=== PATIENT | female | born 1995 | race Caucasian/White ===

== ENCOUNTER 2019-06-30 06:04 | Emergency (ER) | payer OTHER ==
[2019-06-30 06:27] VITALS: BP 108/65; PULSE 113; TEMP 99.4; BMI 24.5
--- NOTE | 2019-06-30 07:02 | PDOC ---
History of Present Illness - General History Source: Patient Exam Limitations: No Limitations <Mer High - Last Filed: 06/30/19 10:27> <Shayne Roa - Last Filed: 06/30/19 12:11> - General Chief Complaint: Cold Symptoms Stated Complaint: COLD SYMPTOMS/, 5 WKS Time Seen by Provider: 06/30/19 06:51 Past History - Travel Traveled outside of the country in the last 30 days: No Close contact w/someone who was outside of country & ill: No - Past Medical History COPD: No GI Disorders: Yes (Gastroparesis) Other medical history: Ovarian cyst - Reproductive History Is Patient Now?: Yes (#): 1 Para: 0 Cervical CA: No Dysfunctional Uterine Bleeding: No Ectopic : No Endometrial CA: No Polycystic Ovaries: Yes Therapeutic (s) & number: No Tubal Ligation: No - Immunization History Td Vaccination: Yes TDAP Vaccination: Yes - Psycho Social/Smoking Cessation Hx Smoking History: Never smoked Have you smoked in the past 12 months: No Information on smoking cessation initiated: No Hx Alcohol Use: No Drug/Substance Use Hx: No <Mer High - Last Filed: 06/30/19 10:27> <Shayne Roa - Last Filed: 06/30/19 12:11> - Past Medical History Allergies/Adverse Reactions: Allergies Allergy/AdvReac Type Severity Reaction Status Date / Time No Known Allergies Allergy Verified 06/30/19 07:05 Review of Systems - Review of Systems Able to Perform ROS?: Yes Comments:: 06/30/19 06:56 CONSTITUTIONAL: Absent: fever, chills, diaphoresis, generalized weakness, malaise, loss of appetite HEENT: Absent: rhinorrhea, nasal congestion, throat pain, throat swelling, difficulty swallowing, mouth swelling, ear pain, eye pain, visual Changes CARDIOVASCULAR: Absent: chest pain, loss of consciousness, palpitations, irregular heart rate, peripheral edema RESPIRATORY: Present: productive cough Absent: shortness of breath, dyspnea with exertion, orthopnea, wheezing, stridor, hemoptysis GASTROINTESTINAL: Absent: abdominal pain, abdominal distension, nausea, vomiting, diarrhea, constipation, melena, hematochezia GENITOURINARY: Present: vaginal bleeding Absent: dysuria, frequency, urgency, hesitancy, hematuria, flank pain, genital pain MUSCULOSKELETAL: Absent: myalgia, arthralgia, joint swelling SKIN: Absent: rash, itching, pallor NEUROLOGIC: Absent: headache, focal weakness or paresthesias, dizziness, unsteady gait, seizure, mental status changes, bladder or bowel incontinence PSYCHIATRIC: Absent: anxiety, depression, suicidal or homicidal ideation, hallucinations. Is the patient limited [place]ian proficient: No <Mer High - Last Filed: 06/30/19 10:27> *Physical Exam - Vital Signs Last Vital Signs Temp Pulse Resp BP Pulse Ox 99.4 F 113 H 18 108/65 98 06/30/19 06:20 06/30/19 06:20 06/30/19 06:20 06/30/19 06:20 06/30/19 06:20 - Physical Exam 06/30/19 06:56 GENERAL: Well developed, well nourished. Awake and alert. No acute distress. HEENT: Normocephalic, atraumatic. PERRLA, EOMI. No conjunctival pallor. Sclera are non- icteric. Moist mucous membranes. Oropharynx is clear. NECK: Supple. Full ROM. No lymphadenopathy. ABDOMINAL: Soft. Non-tender. Non-distended. No rebound or guarding. No organomegaly. Normoactive bowel sounds. PELVIC: External genitalia normal without lesions. Vaginal vault is with dark brown blood. Cervix is long and closed. No cervical motion tenderness. Uterus is nontender and normal in size. Adnexa are nontender and without masses. MUSCULOSKELETAL Normal range of motion at all joints. No bony deformities or tenderness. No CVA tenderness. EXTREMITIES: No cyanosis. No edema. SKIN: Warm and dry. Normal capillary refill. No rashes. No jaundice. NEUROLOGICAL: Alert, awake, appropriate. Cranial nerves 2-12 intact. No deficits to light touch and temperature in face, upper extremities and lower extremities. No motor deficits in the in face, upper extremities and lower extremities. Normoreflexic in the upper and lower extremities. Normal speech. Toes are down- going bilaterally. Gait is normal without ataxia. PSYCHIATRIC: Cooperative. Good eye contact. Appropriate mood and affect. <Mer High - Last Filed: 06/30/19 10:27> - Vital Signs Last Vital Signs Temp Pulse Resp BP Pulse Ox 99.4 F 113 H 18 108/65 98 06/30/19 06:20 06/30/19 06:20 06/30/19 06:20 06/30/19 06:20 06/30/19 06:20 <Shayne Roa - Last Filed: 06/30/19 12:11> ED Treatment Course - LABORATORY CBC & Chemistry Diagram: 06/30/19 07:30 06/30/19 07:30 <Mer High - Last Filed: 06/30/19 10:27> - LABORATORY CBC & Chemistry Diagram: 06/30/19 07:30 06/30/19 07:30 - ADDITIONAL ORDERS Additional order review: Laboratory Results 06/30/19 06/30/19 06/30/19 08:30 07:30 07:30 Sodium 134 L Potassium 3.9 Chloride 107 Carbon Dioxide 25 Anion Gap 3 L BUN 7.4 Creatinine 0.7 Est GFR (CKD-EPI)AfAm 138.59 Est GFR (CKD-EPI)NonAf 119.58 Random Glucose 83 Calcium 8.6 Total Bilirubin 0.6 AST 14 L ALT 22 Alkaline Phosphatase 76 Total Protein 8.1 Albumin 3.8 Beta HCG, Quant 4477.0 Urine Color Yellow Urine Appearance Clear Urine pH 6.0 Ur Specific [place] 1.026 Urine Protein Negative Urine Glucose (UA) Negative Urine Ketones 1+ H Urine Blood Negative Urine Nitrite Negative Urine Bilirubin Negative Urine Urobilinogen 0.2 Ur Leukocyte Esterase Negative Blood Type A POSITIVE Antibody Screen Negative 06/30/19 07:30 RBC 4.01 MCV 88.0 MCHC 34.2 RDW 12.7 MPV 8.1 Neutrophils % 79.4 Lymphocytes % 11.8 Monocytes % 7.9 Eosinophils % 0.7 Basophils % 0.2 <Shayne Roa - Last Filed: 06/30/19 12:11> Medical Decision Making - Medical Decision Making 06/30/19 10:21 The patient is a 24 y/o F G1, P0, with PMH of gastroparesis, presents to the ER with cold symptoms and vaginal bleeding. The patient states her last menstrual cycle was May 26. She notes that yesterday she started to experience some vaginal bleeding. She notes that the blood was dark brown and happened after every time she wiped. Denies urinary symptoms. She also notes that she has had a cough for over 1 week. She was evaluated in urgent care for a productive cough and told she had a cold and to use supportive therapy. Denies fevers, chills, n/v/d, shortness of breath. A/P: Vaginal bleeding in early , cold symptoms. On exam the cervix is closed and long. Dark red blood noted in the vaginal vault not pooling. No adnexal tenderness. Lungs are clear to auscultation bilaterally, throat and ears are unremarkable. Likely a viral illness. Continue with supportive therapy. Transvaginal ultrasound shows a intrauterine approximately 5 weeks with a yolk sac however no heartbeat or pole at this time. Beta-hCG is 4400. Urine is negative for infection. Rest of blood work is unremarkable. Patient's blood type is a positive. We will have patient follow-up in 2 days for repeat ultrasound and beta-hCG. Discharge home I discussed the physical exam findings, ancillary test results and final diagnoses with the patient. I answered all of the patient's questions. The patient was satisfied with the care received and felt comfortable with the discharge plan and treatment plan. The Patient agrees to follow up with the primary care physician/specialist within 24-72 hours. Return precautions were given. <Mer High - Last Filed: 06/30/19 10:27> - Medical Decision Making 06/30/19 12:11 I reviewed the case of the mid-level practitioner and was available for consultation while in the emergency department <Shayne Roa - Last Filed: 06/30/19 12:11> Discharge - Discharge Information Problems reviewed: Yes - Admission No <Mer High - Last Filed: 06/30/19 10:27> <Shayne Roa - Last Filed: 06/30/19 12:11> - Discharge Information Clinical Impression/Diagnosis: Vaginal bleeding Condition: Stable Disposition: HOME - Follow up/Referral Referrals: Grace Gipson MD [Primary Care Provider] - - Patient Discharge Instructions Patient Printed Discharge Instructions: DI for Vaginal Bleeding During Additional Instructions: You were evaluated for your vaginal bleeding today. Your beta hCG was 4400. Your ultrasound showed multiple cysts as well as a within the uterus at about 5 weeks without a heart rate at this time. Please follow-up in 2 days to have your blood redrawn and a new ultrasound. Return to the ER if you have increased bleeding of over 1 pad per hour, lightheadedness, dizziness, vomiting or if you have any changes in your symptoms. - Post Discharge Activity Work/Back to School Note: Back to Work
[2019-06-30 08:42] LABS: BASO % 0.2 % (0-2.0); EOS % 0.7 % (0-4.5); HEMATOCRIT 35.3 % (32.4-45.2); HEMOGLOBIN 12.1 GM/dL (10.7-15.3); LYMPH % 11.8 % (8-40); MCH 30.1 pg (25.7-33.7); MCHC 34.2 g/dl (32.0-36.0); MEAN PLT VOLUME 8.1 fl (7.5-11.1); MONO % 7.9 % (3.8-10.2); NEUT % 79.4 % (42.8-82.8); PLATELET COUNT 371 K/MM3 (134-434); RBC 4.01 M/mm3 (3.60-5.2); RDW 12.7 % (11.6-15.6); WHITE BLOOD COUNT 11.3 K/mm3 (4.0-10.0)
[2019-06-30 09:21] LABS: ALBUMIN 3.8 g/dl (3.4-5.0); BILIRUBIN,TOTAL 0.6 mg/dL (0.2-1); BLOOD UREA NITROGEN 7.4 mg/dL (7-18); CALCIUM 8.6 mg/dL (8.5-10.1); CREATININE 0.7 mg/dL (0.55-1.3); POTASSIUM 3.9 mmol/L (3.5-5.1); TOT PROT 8.1 g/dl (6.4-8.2)
[2019-06-30] MEDS ORDERED: ONDANSETRON *ODT* 4 MG TABLET ONE (09:34)
[2019-06-30 09:48] LABS: URINE APPEARANCE CLEAR; URINE BILIRUBIN NEGATIVE (NEGATIVE); URINE COLOR YELLOW; URINE GLUCOSE (UA) NEGATIVE (NEGATIVE); URINE KETONE 1+ (NEGATIVE); URINE LEUK ESTERASE NEGATIVE (NEGATIVE); URINE NITRITE NEGATIVE (NEGATIVE); URINE PROTEIN NEGATIVE (NEGATIVE); URINE UROBILINOGEN 0.2 mg/dL (0.2-1.0)
== END 2019-06-30 10:29 | disposition home or self-care (01) ==
LOC: JER 06:04
DX: O26.891 Other specified pregnancy related conditions, first trimester (principal); O20.8 Other hemorrhage in early pregnancy; Z3A.01 Less than 8 weeks gestation of pregnancy
CPT/HCPCS: 36415; 76817-TC; 80053; 81003; 84702; 85025; 86850; 86900; 86901; 87086; 99284-25

== ENCOUNTER 2019-07-02 07:39 | Emergency (ER) | payer OTHER ==
[2019-07-02 07:46] VITALS: BP 108/52; PULSE 87; TEMP 98.5; BMI 24.5
--- NOTE | 2019-07-02 08:16 | PDOC ---
History of Present Illness - General Chief Complaint: [facility] [place] Stated Complaint: REVISIT Time Seen by Provider: 07/02/19 08:06 History Source: Patient - History of Present Illness Timing/Duration: other Past History - Past Medical History Allergies/Adverse Reactions: Allergies Allergy/AdvReac Type Severity Reaction Status Date / Time No Known Allergies Allergy Verified 07/02/19 07:42 COPD: No GI Disorders: Yes (Gastroparesis) - Reproductive History (#): 1 Para: 0 Cervical CA: No Dysfunctional Uterine Bleeding: No Ectopic : No Endometrial CA: No Polycystic Ovaries: Yes Therapeutic (s) & number: No Tubal Ligation: No - Immunization History Td Vaccination: Yes TDAP Vaccination: Yes - Psycho Social/Smoking Cessation Hx Smoking History: Never smoked Have you smoked in the past 12 months: No Information on smoking cessation initiated: No Hx Alcohol Use: No Drug/Substance Use Hx: No Review of Systems - Review of Systems Constitutional: No: Chills, Fever ABD/GI: No: Nausea, Vomiting, Abdominal cramping : No: Dysuria *Physical Exam - Vital Signs Last Vital Signs Temp Pulse Resp BP Pulse Ox 98.5 F 87 17 108/52 L 98 07/02/19 07:42 07/02/19 07:42 07/02/19 07:42 07/02/19 07:42 07/02/19 07:42 - Physical Exam General Appearance: Yes: Appropriately Dressed. No: Apparent Distress HEENT: positive: Normal Voice. negative: Scleral Icterus (R), Scleral Icterus ( L) Neck: positive: Supple Respiratory/Chest: negative: Respiratory Distress Gastrointestinal/Abdominal: positive: Soft. negative: Tender Integumentary: positive: Dry, Warm Neurologic: positive: Fully Oriented, Alert, Normal Mood/Affect Medical Decision Making - Medical Decision Making 07/02/19 08:14 24-year-old female , ~ 5 weeks by dates, here for rpt beta. Pt was seen in ED 2 days ago for vaginal bleeding. Beta was over 4000 with gestational sac and yolk sac on ultrasound but no pole or cardiac activity identified. Of note, urine culture was negative and RH +. States bleeding has since resolved. No abdominal pain dysuria nausea vomiting fever or chills. Patient well-appearing and stable. Repeat beta and ultrasound pending today 07/02/19 11:09 After almost 2 hours of waiting for ultrasound report, patient declined to wait further in ED. Would like for us to call her with report. Of note beta today was over 7000. Patient to continue following up with her OB Discharge - Discharge Information Problems reviewed: Yes Clinical Impression/Diagnosis: Threatened Condition: Good Disposition: HOME - Follow up/Referral Referrals: Grace Gipson MD [Primary Care Provider] - - Patient Discharge Instructions Additional Instructions: We will call you with ultrasound report Beta was 7618 today, up from 4477 several days ago Continue to follow-up with your OB - Post Discharge Activity
== END 2019-07-02 11:30 | disposition home or self-care (01) ==
LOC: JER 07:39
DX: O26.891 Other specified pregnancy related conditions, first trimester (principal); O20.0 Threatened abortion; Z3A.01 Less than 8 weeks gestation of pregnancy
CPT/HCPCS: 36415; 76817-TC; 84702; 99284-25

== ENCOUNTER 2020-07-16 02:35 | Inpatient (IN) | payer OTHER ==
[2020-07-16 04:22] LABS: BASO % 0.1 % (0-2.0); EOS % 0.3 % (0-4.5); HEMATOCRIT 30.6 % (32.4-45.2); HEMOGLOBIN 10.2 GM/dL (10.7-15.3); LYMPH % 13.5 % (8-40); MCH 27.5 pg (25.7-33.7); MCHC 33.2 g/dl (32.0-36.0); MEAN CELL VOLUME 82.9 fl (80-96); MEAN PLT VOLUME 9.3 fl (7.5-11.1); MONO % 5.1 % (3.8-10.2); PLATELET COUNT 343 K/MM3 (134-434); RDW 14.4 % (11.6-15.6); WHITE BLOOD COUNT 13.4 K/mm3 (4.0-10.0)
[2020-07-16 04:29] LABS: INR 0.97 (0.83-1.09); PROTHROMBIN TIME (PATIENT) 11.8 SEC (9.7-13.0)
[2020-07-16] MEDS ORDERED: PROMETHAZINE HCL 25 MG/1 ML VIAL IVPB ONE (04:30)
[2020-07-16] MEDS ORDERED: BUTORPHANOL TARTRATE 1 MG/ML VIAL IVPB ONE (04:30)
[2020-07-16 04:31] LABS: ACTIVATED PTT 25.9 SECONDS (25.2-36.5)
[2020-07-16] MEDS ORDERED: OXYTOCIN 30 UNITS in 0.9% NS 30 UNIT/500 ML INFUS.BAG IVPB ONE (04:31)
[2020-07-16] MEDS ORDERED: PROMETHAZINE HCL 25 MG/1 ML VIAL ONE (04:31)
[2020-07-16] MEDS ORDERED: BUTORPHANOL TARTRATE 2 MG/ML VIAL ONE (04:31)
[2020-07-16 04:36] LABS: POTASSIUM 4.1 mmol/L (3.5-5.1)
[2020-07-16 04:38] LABS: BLOOD UREA NITROGEN 7.8 mg/dL (7-18); CALCIUM 8.8 mg/dL (8.5-10.1)
[2020-07-16 04:41] LABS: CREATININE 0.7 mg/dL (0.55-1.3)
[2020-07-16] MEDS: OXYTOCIN 30 UNITS in 0.9% NS 30 UNIT/500 ML INFUS.BAG IVPB SCH (04:45)
[2020-07-16 05:06] LABS: SYPHILIS W/ RPR CONF NON-REACTIVE (NONREACTIVE)
[2020-07-16 05:35] LABS: HIV INTERPRETATION NEGATIVE (NEGATIVE)
[2020-07-16 05:36] VITALS: BMI 29.8
[2020-07-16] MEDS: ELECTROLYTE-148 SOLN 1,000 ML IV SCH (07:09)
[2020-07-16] MEDS ORDERED: FENTANYL/BUPIVACAINE/NS/PF - PCEA - 50 ML DISP.SYRIN EP ONE (08:02)
[2020-07-16] MEDS ORDERED: FENTANYL/BUPIVACAINE/NS/PF - PCEA - 50 ML DISP.SYRIN EP SCH (08:40)
[2020-07-16] MEDS ORDERED: NALOXONE HCL 0.4 MG/ML VIAL IVPUSH PRN (08:49)
[2020-07-16] MEDS ORDERED: LIDOCAINE HCL 1% PRESERVATIVE FREE - 30ML VIAL ONE (10:42)
[2020-07-16] MEDS ORDERED: OXYTOCIN 20 UNITS in 0.9% NS 20 UNIT/1,000 ML INFUS.BAG IV ONE ×2 (10:42→10:50)
[2020-07-16] MEDS ORDERED: BENZOCAINE 28 GM HEMORRHOIDAL OINTMENT TP PRN (12:27)
[2020-07-16] MEDS ORDERED: BENZOCAINE 20% 57 GM BOTTLE TP PRN (12:27)
[2020-07-16] MEDS ORDERED: ACETAMINOPHEN 325 MG TABLET (FP) PO PRN (12:27)
[2020-07-16] MEDS ORDERED: IBUPROFEN 600 MG TABLET (FP) PO PRN (12:27)
[2020-07-16] MEDS ORDERED: WITCH HAZEL 50% (TUCKS) 40 PAD/JAR PAD TP PRN (12:27)
[2020-07-16] MEDS ORDERED: METHYLERGONOVINE MALEATE 0.2 MG/1 ML AMP IM PRN (12:27)
[2020-07-16] MEDS ORDERED: BISACODYL 10 MG SUPP.RECT RC PRN (12:27)
[2020-07-16] MEDS ORDERED: OXYTOCIN 20 UNITS in 0.9% NS 20 UNIT/1,000 ML INFUS.BAG IV SCH (12:30)
[2020-07-16 13:03] LABS: CORD BASE EXCESS -5.5 mmol/L (0-2); CORD PCO2 54.6 mmHg (30-78); CORD pH 7.242 (7.14-7.44)
[2020-07-16 13:04] LABS: CORD HCO3 23.2 mmHg (20-29); CORD PCO2 64.5 mmHg (30-78); CORD pH 7.173 (7.14-7.44)
[2020-07-16] MEDS: FENTANYL/BUPIVACAINE/NS/PF - PCEA - 50 ML DISP.SYRIN EP SCH (15:14)
[2020-07-17 07:53] LABS: BASO % 0.1 % (0-2.0); EOS % 0.3 % (0-4.5); HEMATOCRIT 25.6 % (32.4-45.2); HEMOGLOBIN 8.4 GM/dL (10.7-15.3); LYMPH % 16.4 % (8-40); MCH 27.4 pg (25.7-33.7); MCHC 32.6 g/dl (32.0-36.0); MEAN CELL VOLUME 84.1 fl (80-96); MEAN PLT VOLUME 9.3 fl (7.5-11.1); MONO % 6.3 % (3.8-10.2); NEUT % 76.9 % (42.8-82.8); PLATELET COUNT 268 K/MM3 (134-434); RBC 3.04 M/mm3 (3.60-5.2); RDW 14.2 % (11.6-15.6)
[2020-07-17 21:13] VITALS: TEMP 98.8
[2020-07-17] MEDS ORDERED: SENNOSIDES/DOCUSATE COMBO (SENNA PLUS) TABLET (UD) PO PRN (22:00)
[2020-07-18] MEDS: ELECTROLYTE-148 SOLN 1,000 ML IV SCH (07:18)
[2020-07-18] MEDS: OXYTOCIN 30 UNITS in 0.9% NS 30 UNIT/500 ML INFUS.BAG IVPB SCH (07:18)
[2020-07-18] MEDS: FENTANYL/BUPIVACAINE/NS/PF - PCEA - 50 ML DISP.SYRIN EP SCH ×2 (07:25→11:11)
[2020-07-18 09:35] VITALS: BP 109/75; PULSE 67
== END 2020-07-18 12:10 | disposition home or self-care (01) | DRG 807 ==
LOC: JDEL 02:35 → JLDR 03:40 → J3W 13:45
PROVIDERS: ADMIT Obstetrics & Gynecology; ATTEND Obstetrics & Gynecology
PROC: 10E0XZZ Delivery of Products of Conception, External Approach (ICD-10-PCS; principal; 2020-07-16)
PROC: 0KQM0ZZ Repair Perineum Muscle, Open Approach (ICD-10-PCS; 2020-07-16)
PROC: 0W8NXZZ Division of Female Perineum, External Approach (ICD-10-PCS; 2020-07-16)
DX: O42.02 Full-term premature rupture of membranes, onset of labor within 24 hours of rupture (principal); Z37.0 Single live birth; O62.2 Other uterine inertia; O66.0 Obstructed labor due to shoulder dystocia; O90.81 Anemia of the puerperium; D64.9 Anemia, unspecified; Z3A.38 38 weeks gestation of pregnancy; O70.1 Second degree perineal laceration during delivery
CPT/HCPCS: 36415; 36600; 59409; 80048; 82803; 85025; 85610; 85730; 86780; 86850; 86900; 86901; 87389; C9803; U0003

== ENCOUNTER 2021-12-28 17:30 | Inpatient (IN) | payer OTHER ==
[2021-12-28] MEDS: ELECTROLYTE-148 SOLN 1,000 ML IV SCH (16:00)
[2021-12-28] MEDS ORDERED: PROMETHAZINE HCL 25 MG/1 ML VIAL IVPB ONE (18:30)
[2021-12-28] MEDS ORDERED: BUTORPHANOL TARTRATE 1 MG/ML VIAL IVPB ONE (18:30)
[2021-12-28] MEDS ORDERED: BUTORPHANOL TARTRATE 2 MG/ML VIAL IVPB ONE (18:30)
[2021-12-28] MEDS ORDERED: AMPICILLIN - 2 GM in SODIUM CHLORIDE 100 ML IVPB ONE (18:57)
[2021-12-28 19:06] VITALS: BMI 26.6
[2021-12-28 19:06] LABS: BASO % 0.1 % (0-2.0); EOS % 0.2 % (0-4.5); HEMATOCRIT 33.2 % (32.4-45.2); HEMOGLOBIN 11.1 GM/dL (10.7-15.3); LYMPH % 13.1 % (8-40); MCH 28.4 pg (25.7-33.7); MCHC 33.4 g/dl (32.0-36.0); MEAN CELL VOLUME 84.9 fl (80-96); MEAN PLT VOLUME 8.5 fl (7.5-11.1); MONO % 6.7 % (3.8-10.2); NEUT % 79.9 % (42.8-82.8); PLATELET COUNT 256 10^3/uL (134-434); RBC 3.92 M/mm3 (3.60-5.2); RDW 15.4 % (11.6-15.6); WHITE BLOOD COUNT 12.4 K/mm3 (4.0-10.0)
[2021-12-28 19:17] LABS: INR 0.96 (0.83-1.09)
[2021-12-28 19:20] LABS: ACTIVATED PTT 25.6 SECONDS (25.2-36.5)
[2021-12-28 19:33] LABS: BLOOD UREA NITROGEN 8.5 mg/dL (7-18); CALCIUM 8.5 mg/dL (8.5-10.1)
[2021-12-28 19:37] LABS: CREATININE 0.5 mg/dL (0.55-1.3)
[2021-12-28 20:25] LABS: HIV INTERPRETATION NEGATIVE (NEGATIVE)
[2021-12-28] MEDS ORDERED: FENTANYL/BUPIVACAINE/NS/PF - PCEA - 50 ML DISP.SYRIN EP ONE (20:27)
[2021-12-28] MEDS ORDERED: FENTANYL/BUPIVACAINE/NS/PF - PCEA - 50 ML DISP.SYRIN EP SCH (20:45)
[2021-12-28] MEDS ORDERED: NALOXONE HCL 0.4 MG/ML VIAL IVPUSH PRN (20:45)
[2021-12-28] MEDS ORDERED: BUPIVACAINE HCL/PF 0.25% (2.5MG/ML) 10 ML VIAL ONE (20:46)
[2021-12-28] MEDS ORDERED: AMPICILLIN SODIUM 2 GM VIAL ONE (22:18)
[2021-12-28] MEDS ORDERED: OXYTOCIN 20 UNITS in 0.9% NS 20 UNIT/1,000 ML INFUS.BAG IV ONE (23:13)
[2021-12-29] MEDS ORDERED: oxyCODONE HCL 5 MG TABLET PO PRN (00:08)
[2021-12-29] MEDS ORDERED: ACETAMINOPHEN 325 MG TABLET (FP) PO PRN (00:08)
[2021-12-29] MEDS ORDERED: BISACODYL 10 MG SUPP.RECT RC PRN (00:08)
[2021-12-29] MEDS ORDERED: IBUPROFEN 600 MG TABLET (FP) PO PRN (00:08)
[2021-12-29] MEDS ORDERED: METHYLERGONOVINE MALEATE 0.2 MG/1 ML AMP IM PRN (00:08)
[2021-12-29] MEDS ORDERED: WITCH HAZEL 50% (TUCKS) 40 PAD/JAR PAD TP PRN (00:08)
[2021-12-29] MEDS ORDERED: BENZOCAINE 28 GM HEMORRHOIDAL OINTMENT TP PRN (00:08)
[2021-12-29] MEDS ORDERED: BENZOCAINE 20% 57 GM BOTTLE TP PRN (00:08)
[2021-12-29] MEDS ORDERED: OXYTOCIN 20 UNITS in 0.9% NS 20 UNIT/1,000 ML INFUS.BAG IV SCH (00:15)
[2021-12-29] MEDS ORDERED: ACETAMINOPHEN 325 MG TABLET (FP) ONE (02:22)
[2021-12-29] MEDS: AMPICILLIN - 1 GM in SODIUM CHLORIDE 100 ML IVPB SCH (04:27)
[2021-12-29] MEDS: PRENATAL VITAMINS W/ FOLIC ACID TABLET (FP) PO SCH (10:12)
[2021-12-29 18:24] VITALS: RESP 18
[2021-12-29] MEDS: ELECTROLYTE-148 SOLN 1,000 ML IV SCH (19:56)
[2021-12-30 08:02] LABS: BASO % 0.4 % (0-2.0); EOS % 0.9 % (0-4.5); HEMATOCRIT 32.8 % (32.4-45.2); LYMPH % 19.6 % (8-40); MCH 28.6 pg (25.7-33.7); MCHC 33.5 g/dl (32.0-36.0); MEAN CELL VOLUME 85.3 fl (80-96); MEAN PLT VOLUME 8.6 fl (7.5-11.1); MONO % 7.9 % (3.8-10.2); NEUT % 71.2 % (42.8-82.8); PLATELET COUNT 253 10^3/uL (134-434); RBC 3.84 M/mm3 (3.60-5.2); RDW 15.8 % (11.6-15.6); WHITE BLOOD COUNT 11.9 K/mm3 (4.0-10.0)
[2021-12-30] MEDS: PRENATAL VITAMINS W/ FOLIC ACID TABLET (FP) PO SCH (10:05)
[2021-12-30 10:33] VITALS: BP 100/64; PULSE 69; TEMP 98.2
[2021-12-30] MEDS ORDERED: SENNOSIDES/DOCUSATE COMBO (SENNA PLUS) TABLET (UD) PO PRN (22:00)
== END 2021-12-30 12:30 | disposition home or self-care (01) | DRG 807 ==
LOC: JDEL 17:30 → JLDR 18:00 → JDEL 18:19 → J3W 12-29 02:58
PROVIDERS: ADMIT Obstetrics & Gynecology; ATTEND Obstetrics & Gynecology
PROC: 10E0XZZ Delivery of Products of Conception, External Approach (ICD-10-PCS; principal; 2021-12-28)
DX: O80 Encounter for full-term uncomplicated delivery (principal); Z37.0 Single live birth; Z3A.37 37 weeks gestation of pregnancy
CPT/HCPCS: 36415; 59025; 59409; 80048; 85025; 85610; 85730; 86780; 86850; 86900; 86901; 87389; C9803-CS; U0003; U0005